=== PATIENT | male | born 1970 ===

== ENCOUNTER 2025-10-05 06:12 | Day surgery (SDC) | payer OTHER ==
[2025-09-27 10:32] VITALS: BP 136/86
[~2025-10-05] VITALS: Ht 180.3 cm; Wt 82.1 kg
[~2025-10-05 06:12] MED LIST: D3 DOTS50 MCG; ECOTRIN81 MG PO; FENOFIBRATE40 MG; GLIPIZIDE XL10 MG PO; METFORMIN HCL1000 M2 PO; OMEGA-31000 MG; RYBELSUS3 MG
[2025-10-05] MEDS ORDERED: CEFTRIAXONE SODIUM 2,000 MG VIAL ONE (11:19)
[2025-10-05] MEDS ORDERED: METRONIDAZOLE/SODIUM CHLORIDE 500 MG/100 ML PIGGYBACK IV ONE (11:19)
[2025-10-05] MEDS ORDERED: BUPIVACAINE HCL/MPF 0.5% 30ML VIAL ONE (12:27)
[2025-10-05] MEDS ORDERED: HEMOSTATIC MATRIX 1 KIT KIT TOP ONE (12:28)
[2025-10-05] MEDS ORDERED: DIBUCAINE 30 GM TUBE ONE (12:28)
[2025-10-05] MEDS ORDERED: POVIDONE-IODINE 118 ML BOTT TOP ONE (12:28)
[2025-10-05] MEDS ORDERED: LIDOCAINE HCL 1%/EPINEPHRINE 20ML VIAL IJ ONE (12:28)
[2025-10-05] MEDS ORDERED: RECTICARE30 GM TOP (13:00)
[2025-10-05] MEDS ORDERED: PERCOCET 5-3251 EACH PO (13:00)
[2025-10-05] MEDS ORDERED: MOXIFLOXACIN H400 MG PO (13:24)
== END 2025-10-05 20:00 | disposition home or self-care (01) ==
LOC: CIR.AMB 06:12
PROVIDERS: ATTEND Surgery
DX: K60.321 Anal fistula, complex, initial (principal)